=== PATIENT | male | born 1985 | race Caucasian/White ===

== ENCOUNTER 2024-03-20 19:29 | Emergency (ER) | payer BC, SELFPAY ==
[2024-03-20 19:32] VITALS: BP 159/95
--- NOTE | 2024-03-20 19:40 | ED.GENMED ---
History of Present Illness
General
Chief Complaint: Chest Pain
Time Seen by Provider: 03/20/24 19:39
History of Present Illness
History of Present Illness:
TIME OF INITIAL ENCOUNTER: 7:40 PM
HPI: The patient has had months worth of intermittent chest discomfort, palpitations, and lightheadedness. He states that he saw a business liaison officer here a few years ago and was told that he is 'deconditioned'. At that time he was weighing over 400
pounds. He has no shortness of breath. He was never diaphoretic. He states that he is under a lot of stress.
EXAM:
GENERAL: Well appearing in no distress, elevated BMI
HEENT: Moist oral mucosa
CARDIOVASCULAR: No murmurs, normal heart rate, regular rhythm, minimal anterior chest wall tenderness
PULMONARY: No respiratory distress, breath sounds are clear and equal
ABDOMEN: Soft with no peritoneal signs, no tenderness
NEUROLOGIC: Excellent strength all extremities, no coordination deficits
PSYCHIATRIC: Appropriate mental status, normal insight and judgement
EXTREMITIES: Nontender, no edema, moves all extremities equally, no calf tenderness
SKIN: No rash, no lesions
NUMBER AND COMPLEXITY OF PROBLEMS ADDRESSED AT THE ENCOUNTER
� Chronic conditions affecting care: Asthma
� Acute Exacerbation and/or Progression of Chronic Illness: This is an acute problem
� Differential Diagnosis includes: Costochondritis, chest wall pain, anxiety, ACS very unlikely, PE very unlikely
AMOUNT AND/OR COMPLEXITY OF DATA TO BE REVIEWED AND ANALYZED
� I performed an independent evaluation of and my interpretation is:
EKG: Sinus 74, normal axis, artifact noted
CT:
X-rays: Chest x-ray unremarkable
Laboratory Studies: Initial troponin unremarkable, CBC and chemistries unremarkable
Other:
� Review of other/old records: No old records available for review in [facility]
� Clinical information was obtained by an independent historian: None needed
� Prescriptions/Medications Considered but not given:
� Further testing considered but not performed: Considered PE workup for the patient's vital signs are not consistent with PE and he never had any shortness of breath.
RISK OF COMPLICATIONS AND/OR MORBIDITY OR MORTALITY OF PATIENT MANAGEMENT
� Social determinants of health affecting care: Lives at home
� Discussion with other providers: None needed
� Escalation of care including admission/observation vs risk of discharge considered: The patient denies history of high blood pressure high cholesterol or diabetes. He used to smoke until recently and his mother had a stroke in
the past. He is also overweight�will check repeat troponin. However, initial EKG normal.
ANY OTHER UPDATES:
9 PM: I reassessed patient�patient appears very comfortable. Will check 1 more troponin�he feels that the symptoms started around 6 PM and repeat troponin will be after the 3-hour trang of symptom onset.
10:40 PM: I reassessed patient and remains to appear comfortable. Second troponin negative. He states he thinks he has been the [facility] cardiology in the past�used low risk cardiology follow-up as outpatient.
Phy Exam
Physical Exam
Physical Exam:
See HPI
Scores
Heart Score for Chest Pain Patients
STEMI patient?: Not applicable
PERC Rule Criteria
Age <50 years: Yes
HR <100 bpm: Yes
Room air oxygen sat >94%: Yes
History of DVT or PE: No
Recent trauma or surgery: No
Hemoptysis: No
Exogenous estrogen: No
Clinical signs suggestive of DVT: No
: No
Considered low risk for PE: Yes
PERC Score: 0
PE can be excluded by PERC: Yes
Course
Orders/Labs/Results
Orders:
Orders
03/20/24 19:30
ECG [Electrocardiogram (*1)] Urgent
Reason for Study: Chest Pain
EKG- Treatment ONCE
03/20/24 19:49
Acetaminophen [Tylenol] 1,000 mg PO NOW STA
03/20/24 19:50
CR Chest - 2 Views Urgent
Comment:
Reason For Exam: cp
03/20/24 20:02
Complete Blood Count/With Diff Urgent
Comprehensive Metabolic Panel Urgent
TSH Reflex To Free T4 Urgent
Troponin I Urgent
03/20/24 21:56
Troponin I Urgent
Abnormal Lab Results
03/20/24
20:02
Glucose 118 H mg/dl
(70-99)
03/20/24 20:02
03/20/24 20:02
Vital Signs
Initial and Last Documented VS:
Initial Vital Signs
Temp Pulse Resp BP Pulse Ox
98.2 F 89 18 159/95 98
03/20/24 19:32 03/20/24 19:32 03/20/24 19:32 03/20/24 19:32 03/20/24 19:32
Last Documented Vital Signs
Temp Pulse Resp BP Pulse Ox
98.2 F 73 15 129/85 98
03/20/24 19:32 03/20/24 22:13 03/20/24 22:13 03/20/24 22:13 03/20/24 22:13
*Critical Care Note
Total Time (30-74mins, 75-104mins- exclusive of procedures): Not Applicable
ED Attending Note
-
Portions of this chart may have been created with voice recognition software.� Occasional wrong word or��sound alike� substitutions may have occurred due to the inherent limitations of voice recognition software.
Discharge Plan
Departure
Patient Disposition: Home (Routine Discharge)
Date of Disposition: 03/20/24
Time of Disposition: 22:37
Patient with high blood pressure during this ER visit?: Yes
Discharge Problem:
Chest pain
Instructions: Chest Pain CBC Follow Up
Referrals:
Pj Kmi MD [Active] - Next open appointment
Nilay Hall DO [Family Provider] -
Activity Restrictions/Additional Instructions:
Two sets of cardiac blood work are normal. EKG is unremarkable. Thyroid was also checked and was normal. Other basic labs normal. Chest x-ray is unremarkable with exception of mild elevation of the anterior right hemidiaphragm. Follow up with
cardiology. Return here if worse or other concerns.
Interventions
Interventions:
*Risk Screen - Suicide Last Done: 03/20/24 19:32
*General Assessment Last Done: 03/20/24 19:32
*Neglect/Abuse Screening Last Done: 03/20/24 19:32
ED- Fall Risk Assessment Last Done: 03/20/24 19:40
*Nursing Disposition Last Done: 03/20/24 22:40
ED- Cardiac Assessment Last Done: 03/20/24 19:40
Discharge Date and Time
Print Language: GUAMANIAN
[2024-03-20 20:10] LABS: % Basophils 0.6 % (0-2); % Eosinophils 2.7 % (0-6); % Immature Granulocytes 0.4 % (0-0.5); % Lymphocytes 33.3 % (20.5-51.1); Absolute Eosinophils 0.2 10^3/uL (0-0.7); Absolute Lymphocytes 2.3 10^3/uL (1.2-3.4); Absolute Monocytes 0.4 10^3/uL (0.1-0.6); Absolute Neutrophils 3.9 10^3/uL (1.4-6.5); Hematocrit 42.3 % (39.0-52.0); Hemoglobin 15.1 g/dL (13.0-18.0); Mean Corp Hgb Conc. 35.7 g/dL (33.0-37.0); Mean Corpuscular Hgb 29.9 pg (27.0-31.0); Mean Corpuscular Volume 83.8 fL (80.0-94.0); Mean Platelet Volume 9.9 fL (7.4-10.4); Nucleated Red Blood Cells % 0 % (-); Platelet Count 229 10^3/uL (130-400); Red Blood Cell Count 5.05 10^6/uL (4.70-6.10); White Blood Cell Count 6.8 10^3/uL (4.8-10.8)
[2024-03-20] MEDS: TYLENOL 1000 MG PO (20:15)
[2024-03-20 20:33] LABS: Troponin I < 0.012 ng/ml
[2024-03-20 20:37] LABS: ALT (SGPT) 16 U/L (0-50); AST (SGOT) 18 U/L (17-59); Albumin 4.5 g/dl (3.5-5.0); Alkaline Phosphatase 50 U/L (38-126); Blood Urea Nitrogen 17 mg/dl (9-20); Calcium 9.2 mg/dl (8.4-10.2); Chloride 102 mmol/L (98-107); Glucose 118 mg/dl (70-99); Potassium 3.9 mmol/L (3.5-5.1); Sodium 142 mmol/L (135-145)
[2024-03-20 20:46] LABS: Carbon Dioxide 25 mmol/L (22-30); Total Bilirubin 0.8 mg/dl (0.2-1.3); eGFR > 60.00
[2024-03-20 22:13] VITALS: BP 129/85
[2024-03-20 22:37] LABS: Troponin I < 0.012 ng/ml
== END 2024-03-20 22:40 | disposition home or self-care (01) ==
LOC: EMR 19:29
PROVIDERS: EMERGENCY PHYSICIAN Emergency Medicine; FAMILY PHYSICIAN Family Medicine
DX: R07.89 Other chest pain (principal); E66.3 Overweight; Z87.891 Personal history of nicotine dependence
CPT/HCPCS: 99285; 71046; 80053; 84443; 84484; 85025; 93005